=== PATIENT | male | born 1945 | race Caucasian/White ===

== ENCOUNTER 2024-04-20 15:27 | Emergency (ER) | payer MEDICARE ==
[2024-04-20] MEDS ORDERED: diphenhydrAMINE 50 MG/ML VIAL ONE (15:49)
[2024-04-20] MEDS ORDERED: Haloperidol Lactate 5 MG/ML VIAL ONE (15:49)
[2024-04-20] MEDS ORDERED: Lorazepam 2 MG/ML VIAL ONE ×2 (15:49→16:40)
[2024-04-20 16:25] LABS: Actual Bicarbonate (HCO3v) 22.9 mEq/L (22-28); Base Excess -2.5 mEq/L (-2.0 to +3.0); Calcium, Ionized (venous) 1.11 mmol/L (1.16-1.32); Chloride (VBG) 102 mmol/L (98-106); Hematocrit-VBG 41 % (42.0-52.0); Hemoglobin (Hb) 13.8 g/dL (12.6-17.4); Potassium (VBG) 3.95 mmol/L (3.70-5.30); Sodium 137 mmol/L (133-146); pH (venous) 7.356 (7.32-7.43)
[2024-04-20 16:27] LABS: #Basophils Less than 0.03 10x3/uL (0.0-0.2); %Basophils 0.4 % (0.0-1.0); %Eosinophils 0.8 % (0.0-10.0); %Lymphocytes 19.2 % (21.0-51.0); %Monocytes 7.4 % (0.0-10.0); Hematocrit 38.2 % (42.0-52.0); Hemoglobin 12.9 g/dL (14.0-18.0); Mean Corpuscular HGB CONC 33.8 g/dL (32.0-36.0); Mean Corpuscular Hemoglobin 30.6 pg (27.0-31.0); Mean Corpuscular Volume 90.5 fL (78.0-98.0); Mean Platelet Volume 9.5 fL (7.4-10.4); Platelet Count 152 10x3/uL (130-400); RBC Distribution Width 12.6 % (11.5-14.5); Red Blood Cell (RBC) Count 4.22 mill/uL (4.70-6.10)
[2024-04-20 16:43] LABS: Lipase 21 U/L (8-78); Magnesium 2.3 mg/dL (1.6-2.6)
[2024-04-20 16:44] LABS: Acetaminophen Less than 10 mcg/mL (Less than 10); Alcohol Less than 10.0 mg/dL (Less than 10); Salicylate Less than 8.0 mg/dL (Less than 8.0)
[2024-04-20 16:45] LABS: ALT (SGPT) 10 U/L (8-55); AST (SGOT) 15 U/L (5-34); Albumin 3.8 g/dL (3.4-4.8); Alkaline Phosphatase 71 U/L (40-110); Anion Gap 16 mmol/L (10-20); BUN (Urea Nitrogen) 18 mg/dL (8.4-25.7); Bilirubin, Total 1.2 mg/dL (0.2-1.2); Calc. Creatinine Clearance 0 mL/min (70-130); Calcium 8.6 mg/dL (7.8-10.44); Carbon Dioxide 21 mmol/L (23-31); Chloride 107 mmol/L (98-107); Estimated GFR 91; Globulin 2.1 g/dL (2.4-3.5); Glucose 105 mg/dL (83-110); Potassium 4.1 mmol/L (3.5-5.1); Protein, Total 5.9 g/dL (5.8-8.1); Sodium 140 mmol/L (136-145)
[2024-04-20 16:49] LABS: Troponin I Less than 0.010 ng/mL (< 0.028)
[2024-04-20 17:59] LABS: Bacteria/HPF None Seen HPF (None Seen); Bilirubin Negative (Negative); Blood, Urine 2+ (Negative); CAUTI Indications for Culture Alt mental st,lethar; Clarity Clear (Clear); Glucose, Urine (Dipstick) Normal (Negative); Ketone, Urine Negative (Negative); Leukocyte Negative Leu/uL (Negative); Nitrite Negative (Negative); Protein, Urine (Dipstick) Negative (Neg-Trace); Specific Gravity, Urine 1.006 (1.002-1.036); Squamous Epithelial None Seen HPF (0-3); Urobilinogen Normal mg/dL (Less than 2); WBC/HPF 0-3 HPF (0-3); pH, Urine 7.5 (5.0-9.0)
[2024-04-20 18:00] LABS: Urine Culture Reflex No No
[2024-04-20 18:04] LABS: Amphetamine Not Detected (NotDetected); Barbiturates Screen Not Detected (NotDetected); Benzodiazepine Screen Not Detected (NotDetected); Cocaine Metabolite Screen Not Detected (NotDetected); Methadone Not Detected (NotDetected); Methamphetamine Not Detected (NotDetected); Opiate Screen Not Detected (NotDetected); Oxycodone Screen Not Detected (NotDetected); Phencyclidine (PCP) Not Detected (NotDetected); THC/Cannabinoid Screen Not Detected (NotDetected); Tricyclic Screen Not Detected (NotDetected)
== END 2024-04-20 21:20 | disposition home or self-care (01) ==
LOC: ERS 15:27
DX: R26.2 Difficulty in walking, not elsewhere classified (principal); R54 Age-related physical debility
CPT/HCPCS: 51701; 70450; 71045; 80053; 80306; 80307; 81001; 82805; 83605; 83690; 83735; 84484; 85025; 93005; 96372; 96374; 99285; J1200; J1630; J2060; 36415